=== PATIENT | male | born 1970 | race Caucasian/White ===

== ENCOUNTER 2019-11-20 06:36 | Day surgery (SDC) | payer BC ==
[2019-11-20] MEDS ORDERED: Bupivacaine 0.5% 30 ML SDV ONE (06:57)
[2019-11-20] MEDS ORDERED: Lactated Ringers 1,000 ML IV SCH (07:00)
[2019-11-20] MEDS ORDERED: Nozin Nasal Sanitizer NASBOTH ONE (07:00)
[2019-11-20] MEDS ORDERED: Glycopyrrolate 0.2 MG/ML 5 ML MDV ONE (07:19)
[2019-11-20] MEDS ORDERED: Propofol 200 MG/20 ML SDV ONE (07:19)
[2019-11-20] MEDS ORDERED: Ondansetron 4 MG/2 ML SDV ONE (07:19)
[2019-11-20] MEDS ORDERED: Dexamethasone 4 MG/ML SDV ONE (07:19)
[2019-11-20] MEDS ORDERED: Rocuronium 50 MG/5 ML Vial ONE (07:19)
[2019-11-20] MEDS ORDERED: Succinylcholine 200 MG/10 ML MDV ONE (07:19)
[2019-11-20] MEDS ORDERED: Neostigmine Methylsulfate 1 MG/ML 5 ML Syringe ONE (07:19)
[2019-11-20] MEDS ORDERED: fentaNYL 250 MCG/5 ML SDV ONE (07:20)
[2019-11-20] MEDS ORDERED: Clindamycin Phosphate 900 MG in Sodium Chloride 0.9% 100 ML IV ONE (07:30)
[2019-11-20] MEDS ORDERED: fentaNYL 100 MCG/2 ML SDV ONE (08:00)
[2019-11-20] MEDS: Ketorolac 60 MG/2 ML SDV IM ONE ×2 (09:45→09:47)
--- NOTE | 2019-12-05 18:33 | OR ---
DATE OF PROCEDURE: 11/20/2019 SURGEON: Paulino Campos MD PREOPERATIVE DIAGNOSES: 1. Chondromalacia of patellofemoral joint, right knee. 2. Possible medial meniscus tear. POSTOPERATIVE DIAGNOSES: 1. Chondromalacia of patellofemoral joint, grade 2 and 3; chondromalacia of medial femoral condyle, grade 3. 2. Multiple loose bodies PROCEDURES: Arthroscopy of right knee with chondroplasty of patellofemoral joint and medial femoral condyle, and removal of loose bodies. ANESTHESIA: General. INDICATIONS: Lance is a 49-year-old gentleman with a history of persistent right knee pain, catching and grinding. He has failed conservative treatment and now presents for arthroscopy of his right knee. Risks, benefits, and potential complications were discussed. DESCRIPTION OF PROCEDURE: After adequate anesthesia was obtained, the patient was placed supine with a tourniquet about the right upper thigh. Right leg was prepped and draped in a sterile fashion. Leg was exsanguinated and tourniquet inflated to 300 mmHg pressure. Standard inferior, medial, and lateral portals were established. Scope was introduced. The patellofemoral joint was inspected. This revealed grade 2 changes of the patella with cracking and fissuring, but no full-thickness loss. Trochlear groove showed more grade 2 and 3 changes with no full-thickness loss, but areas of irregular articular cartilage. Medial compartment revealed grade 3 changes in the medial femoral condyle, again , with loose articular fragments, but no full-thickness defect. Tibial plateau cartilage was intact. Medial meniscus showed some mild scuffing, but no tear was present. Multiple loose bodies were present throughout the knee consistent with chondromalacia observed. Intercondylar notch revealed intact ACL and PCL. Lateral compartment showed intact meniscus and articular cartilage with additional loose bodies. Attention was returned to the medial compartment, where a shaver was used to remove the loose articular fragments, beveling this down to a smooth edge and stable cartilage. Moving into the patellofemoral joint, the shaver was again used to remove all loose fragments and bevel the edges of the defects. Knee was taken through range of motion. The patella tracked well and did not show any excessive catching or other abnormality with flexion and extension. All loose fragments were removed including medial and lateral gutters. The knee was drained and scope was withdrawn. Port sites were closed in a standard fashion. Knee was infiltrated with 0.25% Marcaine and a sterile dressing was applied. The patient tolerated the procedure very well. There were no complications. He was taken from the operating room in a stable condition. Paulino Campos MD /[id number] MTDD
== END 2019-11-20 10:20 | disposition home or self-care (01) ==
LOC: JP.SDS 06:36
PROVIDERS: ATTEND Specialist
DX: M22.41 Chondromalacia patellae, right knee (principal); M23.41 Loose body in knee, right knee; Z88.0 Allergy status to penicillin
CPT/HCPCS: 29877; 36415; 80053; 85027; A9270; J0330; J1100; J2405; J2704; J2710; J3010; J3490; J7050; J7120; J1885

== ENCOUNTER 2022-11-03 09:22 | Emergency (ER) | payer OTHER, BC ==
[2022-11-03] MEDS ORDERED: Acetaminophen 325 MG Tab PO ONE (09:39)
[2022-11-03] MEDS ORDERED: LORazepam 1 MG Tab PO ONE (10:46)
== END 2022-11-03 11:48 | disposition home or self-care (01) ==
LOC: JP.ED 09:22
DX: S09.90XA Unspecified injury of head, initial encounter (principal); S50.01XA Contusion of right elbow, initial encounter; S80.211A Abrasion, right knee, initial encounter; I10 Essential (primary) hypertension; E78.00 Pure hypercholesterolemia, unspecified; E66.9 Obesity, unspecified; Z68.37 Body mass index [BMI] 37.0-37.9, adult; Z88.0 Allergy status to penicillin; W10.8XXA Fall (on) (from) other stairs and steps, initial encounter
CPT/HCPCS: 70450; 73080; 99283; 99284; A9270